=== PATIENT | male | born 1960 ===

== ENCOUNTER 2020-01-13 12:30 | Emergency (ER) | payer SELFPAY ==
[~2020-01-13] VITALS: Ht 180.3 cm; Wt 81.6 kg
[2020-01-13 12:32] VITALS: Ht 180.3 cm; Wt 81.6 kg
[2020-01-13 14:47] VITALS: BP 105/75
== END 2020-01-13 14:47 | disposition home or self-care (01) ==
LOC: ED 12:30
DX: F10.129 Alcohol abuse with intoxication, unspecified (principal)

== ENCOUNTER 2020-01-14 10:54 | Emergency (ER) | payer SELFPAY ==
[2020-01-14 10:58] VITALS: BP 147/88; Ht 185.4 cm
== END 2020-01-14 13:48 | disposition left against medical advice (07) ==
LOC: ED 10:54
DX: F10.129 Alcohol abuse with intoxication, unspecified (principal)
CPT/HCPCS: 82962